=== PATIENT | female | born 1970 | race Caucasian/White ===

== ENCOUNTER 2018-04-05 10:24 | Emergency (ER) | payer OTHER ==
[~2018-04-05] VITALS: Ht 177.8 cm; Wt 158.8 kg
--- OUTSIDE RECORDS SUMMARY | 2018-04-05 10:29 | XMS REPORT | Referral Summary ---
Author Author [facility] Organization [facility] Address Unknown Phone Unavailable Care Team Providers Care Funeral Service Manager Name Role Phone Anthony Grimm PCP Encounter [facility] [id number] Date(s): 01/01/15 - 01/01/[address] [facility] [address] [place], [place] [address] Final: OTHER AND UNSPECIFIED INJURY TO KNEE, LEG, ANKLE, AND FOOT Final: OSTEOARTHROSIS, LOCALIZED, NOT SPECIFIED WHETHER PRIMARY OR SECONDARY, INVOLVING LOWER LEG Final: Other injury of other sites of trunk Discharge Disposition: 01-Home or Self Care Attending Physician: Anthony Grimm MD Admitting Physician: Anthony Grimm MD Vital Signs No data available for this section Problem List No data available for this section Allergies, Adverse Reactions, Alerts No Known Medication Allergies Medications Micardis See Instructions, UNKOWN DOSE @ THIS TIME PER PT, 0 Refill(s) Start Date: 11/11/13 Status: Ordered Results No data available for this section Immunizations No data available for this section Procedures No data available for this section Social History Social History Type Response Smoking Status Former smoker Assessment and Plan No data available for this section
--- OUTSIDE RECORDS SUMMARY | 2018-04-05 10:30 | XMS REPORT | Clinical Summary ---
Author Author CHELSEY Zhang Gregory M [facility], [facility] Address [address] [place] [address] Phone Care Team Providers Care Supervisory Clerk Name Role Phone CHELSEY Zhang Gregory M Unavailable [ ] Conditions or Problems Problem Name Problem Code Onset Date Status Entry Date Provider Comment Standard Description Annotate Degenerative joint disease of right knee 824188840 (SNOMED CT) Active SIA Sy Localized, primary osteoarthritis Other specified postprocedural states 112551320 (SNOMED CT) Active Mikie Neto Postprocedural state finding Muscle weakness 50337973 (SNOMED CT) Active Mikie Neto Muscle weakness Pain in right knee 00251371 (SNOMED CT) Active Ludwin Helena Knee pain Joint effusion, right knee 028673707 (SNOMED CT) Active Ludwin Helena Knee joint effusion Other tear of medial meniscus, current injury, right knee, initial encounter 839384439 (SNOMED CT) Active Ludwin Helena Tear of medial meniscus of knee Degenerative joint disease, knee, right 303741204 (SNOMED CT) Active ISA Sy Osteoarthritis of knee Degenerative joint disease, knees, bilateral 644345184 (SNOMED CT) Active ISA Blanc Osteoarthritis of knee Degenerative joint disease, knee, right, severe 925657812 (SNOMED CT) Active ISA Blanc Osteoarthritis of knee Pain in right knee M25.561 (ICD-10-CM) Active Mikie Duque Pain in right knee Osteoarthritis of knee, unspecified M17.9 (ICD-10-CM) Active Mikie Duque Osteoarthritis of knee, unspecified Medications Medication Instructions Start Date Stop Date Generic Name NDC Provider NORCO 5-325 MG TABS i or ii poq 4-6 hrs prn pain HYDROCODONE- ACETAMINOPHEN [id number] Jona Ho MD TRAMADOL HCL 50 MG TABS 1-2 q 6 hrs prn TRAMADOL HCL [id number] Jona Ho MD MICARDIS TABS TELMISARTAN TABS [id number] Anca Joaquín Medications Administered No information available. Allergies, Adverse Reactions, Alerts Observed no known allergies at Results Date Name Value Unit Range Flag Description Clinical Summary: Patient Portal Indicator PATPORTALPIN I This will be used to establish a PIN number for patients to register in the Patient Portal. 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 MEDS REVIEW Done Documentation of current medications ( procedure) Office Visit: est rck rt knee wanting an injection, [employer] ppo, as 10/11/2017. SMOK ADVICE yes Smoking cessation education (procedure) SMOK STATUS current some day smoker Tobacco smoking status NHIS CARD RSK GRP No cardiac risk group XRAY HX No xray history XRAY TYPE None xray, type Plan of Care Type Date Detail Patient education WEAKNESS Patient education Hydrocodone%2FAcetaminophen%20(Oral)%20(Tablet% 2C%20Liquid%2C%20Capsule) Procedures Code Procedure Name Date Entry Date CPT-56008 Arthrocentesis, aspiration and/or injection; major joint or bursa ( eg, [facility] CPT-J1030 Injection, Depo Medrol- methylprednisolone acetate, 40 mg CPT-26514 Arthrocentesis, aspiration and/or injection; major joint or bursa ( eg, [facility] CPT-J1030 Injection, Depo Medrol- methylprednisolone acetate, 40 mg CPT-90139 Arthrocentesis, aspiration and/or injection; major joint or bursa ( eg, [facility] CPT-J1030 Injection, Depo Medrol- methylprednisolone acetate, 40 mg CPT-45183 Arthrocentesis, aspiration and/or injection; major joint or bursa ( eg, [facility] CPT-J1030 Injection, Depo Medrol- methylprednisolone acetate, 40 mg CPT-G8730 Pain assessment documented as positive and f/u plan is documented CPT-G8730 Pain assessment documented as positive and f/u plan is documented CPT-G8730 Pain assessment documented as positive and f/u plan is documented REF SEND LETTER TO REF CPT-58393 Aspiration and/or Injection; major joint or bursa (Shldr., Hip or Knee) CPT-J7323 Euflexxa CPT-93868 Aspiration and/or Injection; major joint or bursa (Shldr., Hip or Knee) CPT-J7323 Euflexxa CPT-02995 Arthrocentesis, aspiration and/or injection; [facility] ( [facility] C[facility]-J[facility] Injection, Depo Medrol- methylprednisolone acetate, 40 mg CPT-53637 Aspiration and/or Injection; major joint or bursa (Shldr., Hip or Knee) CPT-J7323 Euflexxa CPT-44428 Arthrocentesis, aspiration and/or injection; major joint or bursa ( eg, [facility] CPT-J1030 Injection, Depo Medrol- methylprednisolone acetate, 40 mg REF MD SEND LETTER TO REF MD REF MD SEND LETTER TO REF Vital Signs Date Name Value Unit Description BMI (Body Mass Index) 50.21 kg/m2 Body Mass Index [Ratio] Height 70 [in_us] height E&M Weight Measured 350 [lb_av] weight E&M BP Diastolic 78 mm[Hg] blood pressure, diastolic BP Systolic 140 mm[Hg] blood pressure, systolic Heart Rate 71 /min pulse rate E&M Encounters Code Encounter Date Provider Facility [facility]37944 41001- Est Level II Jimmy Zhang PA-C [facility] at [facility]52316 04871- Est Level III Jimmy Zhang PA-C [facility] at [facility]86459 85156- Est Level III Jimmy Zhang PA-C [facility] at [facility]57727 10338 - Postoperative follow-up visit Jimmy Zhang PA-C [facility] at [facility]18417 92965 - Postoperative follow-up visit Jimmy Zhang PA-C [facility] at [facility]36574 03251- Est Level III Jona Ho MD [facility] at [facility]31174 27931- [facility] Level III Jimmy Zhang PA-C [facility] at [place] CPT-90310 42723- [facility] Level III Jona Ho MD [facility] at [place] Social History Concept Description Observation Name Observation Value Units Start Date Alcohol use ETOH USE Yes Current some day smoker SMOK STATUS current some day smoker Tobacco use and exposure SMOK ADVICE yes Alcohol use ETOH USE Yes Current some day smoker SMOK STATUS current some day smoker Tobacco use and exposure SMOK ADVICE yes Alcohol use ETOH USE Yes Current some day smoker SMOK STATUS current some day smoker Tobacco use and exposure SMOK ADVICE yes Alcohol use ETOH USE Yes Current some day smoker SMOK STATUS current some day smoker Alcohol use ETOH USE Yes Current some day smoker SMOK STATUS current some day smoker Alcohol use ETOH USE Yes Current some day smoker SMOK STATUS current some day smoker
--- OUTSIDE RECORDS SUMMARY | 2018-04-05 10:30 | XMS REPORT | Clinical Summary ---
Author Author CHELSEY Zhang Gregory M [facility], [facility] Address [address] [place] [address] Phone Care Team Providers Care Local Company Flatbed Truck Driver Name Role Phone CHELSEY Zhang Gregory M Unavailable [ ] Conditions or Problems Problem Name Problem Code Onset Date Status Entry Date Provider Comment Standard Description Annotate Degenerative joint disease of right knee 098781998 (SNOMED CT) Active ISA Sy Localized, primary osteoarthritis Other specified postprocedural states 461816350 (SNOMED CT) Active Mikie Neto Postprocedural state finding Muscle weakness 46505542 (SNOMED CT) Active Mikie Neto Muscle weakness Pain in right knee 31818302 (SNOMED CT) Active Ludwin Helena Knee pain Joint effusion, right knee 860284923 (SNOMED CT) Active Ludwin Helena Knee joint effusion Other tear of medial meniscus, current injury, right knee, initial encounter 006861800 (SNOMED CT) Active Ludwin Helena Tear of medial meniscus of knee Degenerative joint disease, knee, right 263221567 (SNOMED CT) Active ISA Sy Osteoarthritis of knee Degenerative joint disease, knees, bilateral 131521506 (SNOMED CT) Active ISA Blanc Osteoarthritis of knee Degenerative joint disease, knee, right, severe 515892164 (SNOMED CT) Active ISA Blanc Osteoarthritis of knee Pain in right knee M25.561 (ICD-10-CM) Active Mikie Duque Pain in right knee Osteoarthritis of knee, unspecified M17.9 (ICD-10-CM) Active Mikie Duque Osteoarthritis of knee, unspecified Medications Medication Instructions Start Date Stop Date Generic Name NDC Provider NORCO 5-325 MG TABS i or ii poq 4-6 hrs prn pain HYDROCODONE- ACETAMINOPHEN [id number] Jona Ho MD TRAMADOL HCL 50 MG TABS 1-2 q 6 hrs prn TRAMADOL HCL [id number] Joan Ho MD MICARDIS TABS TELMISARTAN TABS [id number] Anca Joaquín Medications Administered No information available. Allergies, Adverse Reactions, Alerts Observed no known allergies at Results Date Name Value Unit Range Flag Description Clinical Summary: Patient Portal Indicator PATPORTALPIN I This will be used to establish a PIN number for patients to register in the Patient Portal. 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 yes Dietary management education, guidance , and [...] Procedures Code Procedure Name Date Entry Date CPT-47739 Arthrocentesis, aspiration and/or injection; major joint or bursa ( eg, [facility] CPT-J1030 Injection, Depo Medrol- methylprednisolone acetate, 40 mg CPT-20906 Arthrocentesis, aspiration and/or injection; major joint or bursa ( eg, [facility] CPT-J1030 Injection, Depo Medrol- methylprednisolone acetate, 40 mg CPT-93681 Arthrocentesis, aspiration and/or injection; major joint or bursa ( eg, [facility] CPT-J1030 Injection, Depo Medrol- methylprednisolone acetate, 40 mg CPT-81390 Arthrocentesis, aspiration and/or injection; major joint or bursa ( eg, [facility] CPT-J1030 Injection, Depo Medrol- methylprednisolone acetate, 40 mg CPT-G8730 Pain assessment documented as positive and f/u plan is documented CPT-G8730 Pain assessment documented as positive and f/u plan is documented CPT-G8730 Pain assessment documented as positive and f/u plan is documented REF SEND LETTER TO REF CPT-34944 Aspiration and/or Injection; major joint or bursa (Shldr., Hip or Knee) CPT-J7323 Euflexxa CPT-67046 Aspiration and/or Injection; major joint or bursa (Shldr., Hip or Knee) CPT-J7323 Euflexxa CPT-57516 Arthrocentesis, aspiration and/or injection; [facility] ( [facility] CPT-J[facility]30 Injection, Depo Medrol- methylprednisolone acetate, 40 mg CPT-44756 Aspiration and/or Injection; major joint or bursa (Shldr., Hip or Knee) CPT-J7323 Euflexxa CPT-23750 Arthrocentesis, aspiration and/or injection; major joint or [...] E&M Encounters Code Encounter Date Provider Facility [facility]36364 69949- Est Level II Jimmy Zhang PA-C [facility] at [facility]65149 31129- Est Level III Jimmy Zhang PA-C [facility] at [facility]37935 63992- Est Level III Jimmy Zhang PA-C [facility] at [facility]00320 00293 - Postoperative follow-up visit Jimmy Zhang PA-C [facility] at [facility]79061 49506 - Postoperative follow-up visit Jimmy Zhang PA-C [facility] at [facility]13173 16250- Est Level III Jona Ho MD [facility] at [facility]98727 61775- [facility] Level III Jimmy Zhang PA-C [facility] at [place] CPT-69988 55757- [facility] Level III Jona Ho MD [facility] at [place] Social History Concept Description Observation Name Observation [...]
--- OUTSIDE RECORDS SUMMARY | 2018-04-05 10:31 | XMS REPORT ---
Author Author Scott Dent Organization [facility] Address [address] [place] [address] Care Team Providers Care Circuit Court Judge Name Role Phone Scott Dent Unavailable PROBLEMS Type Condition ICD9-CM Code ALV82-MQ Code Onset Dates Condition Status SNOMED Code Problem Mild episode of recurrent major depressive disorder F33.0 Active 137207194 Problem Other chronic pain G89.29 Active 11458073 Problem Benign essential hypertension I10 Active 4035712 Problem Morbid (severe) obesity due to excess calories E66.01 Active 492553108 Problem Mixed hyperlipidemia E78.2 Active 042953756 Problem Seasonal allergic rhinitis due to other allergic trigger J30.89 Active 148856610 Problem Other chronic pain G89.29 Active 13634905 Problem Vitamin D deficiency E55.9 Active 77836281 Problem Cigarette nicotine dependence without complication F17.210 Active 98539045 Problem Primary osteoarthritis of right knee M17.11 Active 186271202 Problem Essential hypertension I10 Active 35246199 Problem Major depressive disorder with single episode, in full remission F32.5 Active 088935151 Problem Mild intermittent asthma without complication J45.20 Active 816432335 Problem Morbid obesity with BMI of 50.0-59.9, adult Z68.43 Active 450799544 ALLERGIES No Information ENCOUNTERS Encounter Location Date Diagnosis [facility] [address] [place] [address] [id number] Feb, [facility] [address] [place] [address] [id number] Dec, [facility] [address] [place] [address] [id number] Dec, [facility] [address] [place] [address] [id number] Dec, Encounter for administrative examinations Z02.9 [facility] [address] [place] [address] [id number] Dec, Encounter for general adult medical examination without abnormal findings Z00.00 ; Screening for blood or protein in urine Z13.89 ; Seasonal allergic rhinitis due to other allergic trigger J30.89 ; Screening, heart disease, ischemic Z13.6 ; Benign essential hypertension I10 ; Mixed hyperlipidemia E78.2 ; Vitamin D deficiency E55.9 ; Weight gain R63.5 ; Body mass index (BMI) of 50- 59.9 in adult Z68.43 ; Morbid (severe) obesity due to excess calories E66.01 ; Cigarette nicotine dependence without complication F17.210 ; Tobacco abuse Z72.0 and Tobacco abuse counseling Z71.[address] [facility] [address] [id number] September, Pain in right knee M25.561 ; Other chronic pain G89.29 and Benign essential hypertension I10 [facility] [address] [id number] Jan, [facility] [address] [id number] Dec, Pain in right knee M25.561 ; Chronic seasonal allergic rhinitis due to other allergen J30.2 ; Screening, heart disease, ischemic Z13.6 ; Benign essential hypertension I10 ; Mild intermittent asthma without complication J45.20 and Mild episode of recurrent major depressive disorder F33.0 [facility] [address] [id number] Nov, [facility] [address] [id number] Nov, Acute non-recurrent sinusitis, unspecified location J01.90 and Unknown skin lesion L98.[address] [facility] [address] [id number] Aug, [facility] [address] [id number] Jul, Paronychia of great toe, left L03.032 [facility] [address] [id number] May, [facility] [address] [id number] Dec, Seasonal allergic rhinitis, unspecified allergic rhinitis trigger J30.2 and Eustachian tube dysfunction, bilateral H69.83 [facility] [address] [id number] Nov, Acute meniscal tear of right knee, subsequent encounter S83.206D ; Acute non-recurrent maxillary sinusitis J01.00 and Eustachian tube salpingitis, left H68.002 [facility] [address] [id number] September, Arthritis of knee M19.90 and High risk medication use Z79.8[address] [facility] [address] [id number] Aug, [facility] [address] [id number] Jul, Essential hypertension I10 and Mild intermittent asthma without complication J45.20 [facility] [address] [id number] Jul, Mild intermittent asthma without complication J45.20 ; Essential hypertension I10 ; Major depressive disorder with single episode, in full remission F32.5 ; Primary osteoarthritis of right knee M17.11 ; Allergic rhinitis, unspecified allergic rhinitis type J30.9 and Morbid obesity with BMI of 50.0-59.9, adult Z68.43 IMMUNIZATIONS No Known Immunizations SOCIAL HISTORY Never Assessed REASON FOR VISIT PA PLAN OF CARE VITAL SIGNS MEDICATIONS Medication Instructions Dosage Frequency Start Date End Date Duration Status Saxenda 18 mg/3ml (6mg/ml) injection Once a day 3.4mg 24h Dec, 30 days Active RESULTS No Results PROCEDURES No Known procedures INSTRUCTIONS MEDICATIONS ADMINISTERED No Known Medications MEDICAL (GENERAL) HISTORY Type Description Date Medical History hypertension Medical History arthritis Surgical History tonsillectomy Surgical History prakash anal ulcer Surgical History right knee surgery Dr. Ho 12/02/2015
--- OUTSIDE RECORDS SUMMARY | 2018-04-05 10:31 | XMS REPORT ---
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.0 Active 759406463 Problem Other chronic pain G89.29 Active 41205086 Problem Benign essential hypertension I10 Active 6220777 Problem Morbid (severe) obesity due to excess calories E66.01 Active 556419457 Problem Mixed hyperlipidemia E78.2 Active 407349097 Problem Seasonal allergic rhinitis due to other allergic trigger J30.89 Active 775582962 Problem Other chronic pain G89.29 Active 20443406 Problem Vitamin D deficiency E55.9 Active 30815770 Problem Cigarette nicotine dependence without complication F17.210 Active 73839229 Problem Primary osteoarthritis of right knee M17.11 Active 294744577 Problem Essential hypertension I10 Active 96897409 Problem Major depressive disorder with single episode, in full remission F32.5 Active 054419016 Problem Mild intermittent asthma without complication J45.20 Active 080539325 Problem Morbid obesity with BMI of 50.0-59.9, adult Z68.43 Active 696112916 ALLERGIES No Known Allergies ENCOUNTERS Encounter Location Date Diagnosis [facility] [address] [place] [address] [id number] Dec, [facility] [address] [place] [address] [id number] Dec, [facility] [address] [place] [address] [id number] Dec, Encounter for general adult medical examination [...] abuse Z72.0 and Tobacco abuse counseling Z71.6 [facility] [address] [id number] September, Pain in right knee M25.561 ; Other chronic pain G89.29 and Benign essential hypertension I10 [facility] [address] [id number] Jan, [facility] [address] [id number] Dec, Pain in right knee M25.561 ; Chronic seasonal allergic rhinitis due to other allergen J30.2 ; Screening, heart disease, ischemic Z13.6 ; Benign essential hypertension I10 ; Mild intermittent asthma without complication J45.20 and Mild episode of recurrent major depressive disorder F33.0 [facility] [address] [id number] Nov, [facility] [address] [id number] Nov, Acute non-recurrent sinusitis, unspecified location J01.90 and Unknown skin lesion L98.9 [facility] [address] [id number] Aug, [facility] [address] [id number] Jul, Paronychia of great toe, left L03.032 [facility] [address] [id number] May, [facility] [address] [id number] Dec, Seasonal allergic rhinitis, unspecified allergic rhinitis trigger J30.2 and Eustachian tube dysfunction, bilateral H69.83 [facility] [address] [id number] Nov, Acute meniscal tear of right knee, subsequent encounter S83.206D ; Acute non-recurrent maxillary sinusitis J01.00 and Eustachian tube salpingitis, left H68.002 [facility] [address] [id number] September, Arthritis of knee M19.90 and High risk medication use Z79.899 [facility] [address] [place] [address] [id number] Aug, [facility] [address] [place] [address] [id number] Jul, Essential hypertension I10 and Mild intermittent asthma without complication J45.[address] [facility] [address] [place] [address] [id number] Jul, Mild intermittent asthma without complication J45.20 ; Essential hypertension I10 ; Major depressive disorder with single episode, in full remission F32.5 ; Primary osteoarthritis of right knee M17.11 ; Allergic rhinitis, unspecified allergic rhinitis type J30.9 and Morbid obesity with BMI of 50.0-59.9, adult Z68.43 IMMUNIZATIONS No Known Immunizations SOCIAL HISTORY Never Assessed REASON FOR VISIT phy/LOUISErouillard PLAN OF CARE Activity Details Follow Up 1 Year, prn Reason: VITAL SIGNS Temperature 98.3 degrees Fahrenheit 2017-12-14 Height 69.0 in 2017-12-14 Weight 369.2 lbs 2017-12-14 Oximetry 96%ra % 2017-12-14 BMI 54.52 kg/m2 2017-12-14 Blood pressure systolic 148 mm Hg 2017-12-14 Blood pressure diastolic 88 rechck 128 mm Hg 2017-12-14 MEDICATIONS Medication Instructions Dosage Frequency Start Date End Date Duration Status Iron 325 (65 Fe) MG Orally prn only 1 tablet 30 day(s) Active Potassimin 75 MG Orally Once a day 1 tablet 24h 30 day(s) Active Voltaren 1 % Externally QID prn apply to Rt knee Dec, 30 days Active ProAir HFA 108 (90 Base) MCG/ACT Inhalation every 4 hrs 2 puffs as needed 4h 90 Active Flonase 50 MCG/ACT Nasally Once a day 2 sprays in each nostril 24h Jul, 90 days Active Meloxicam 7.5 MG Orally Once a day 1 tablet 24h May, 30 Active Escitalopram Oxalate 20 MG Orally Once a day 1 tablet 24h 90 Active Medrol 4 mg Orally daily as directed 24h September, 6 days Active Fexofenadine HCl 180 MG Orally Once a day 1 tablet as needed 24h Dec, Nov, 90 days Active Telmisartan-HCTZ 80-25 MG Orally Once a day 1 tablet 24h 90 Active Furosemide 40 MG Orally Once a day as needed 1 tablet 90 Active RESULTS Name Result Date Reference Range Urinalysis, Complete 2017-12-14 Microscopic Examination Urine-Color yellow Appearance clear Specific [place] 1.015 pH 7.5 Glucose neg Protein neg Occult Blood neg Bilirubin neg Urobilinogen,Semi-Qn 0.2 Nitrite, Urine neg Ketones neg WBC Esterase neg Urinalysis Gross Exam Microscopic Examination *TSH 2017-12-14 TSH 1.13 0.34-4.82 *CBC With Differential/Platelet 2017-12-14 WBC 6.2 5.0-10.0 RBC 4.92 4.00-6.00 Hemoglobin 13.0 12.0-16.0 Hematocrit 41.4 37.0-47.0 MCV 84.1 80.0-100.0 MCH 26.4 27.0-33.0 MCHC 31.4 32.0-37.0 RDW 14.2 11.0-15.6 Platelets 273 150-400 Neutrophils 55.5 50-75 Lymphs 32.4 20-30 Monocytes 6.9 4-6 Eos 4.2 2-4 Basos 0.8 0-1 Neutrophils (Absolute) 3.4 2.0-9.0 Lymphs (Absolute) 2.0 1.0-4.0 Monocytes(Absolute) 0.4 0.1-1.0 Eos (Absolute) 0.3 0.1-0.5 Baso (Absolute) 0.1 0.0-0.2 Immature Granulocytes 0.2 0.0-0.6 Immature Grans (Abs) 0.01 0.00-0.09 NRBC 0.0 0.0-0.0 *Comp. Metabolic Panel (14) 2017-12-14 Glucose 88 70-99 BUN 15 7-20 Creatinine 0.6 0.6-1.0 eGFR If NonAfricn Am 109 > 59 eGFR If Africn Am 127 > 59 BUN/Creatinine Ratio 25 9-20 Sodium 140 135-148 Potassium 4.5 3.5-5.3 Chloride 107 98-110 Carbon Dioxide, Total 28 21-32 Calcium 8.8 8.5-10.1 Protein, Total 6.9 6.4-8.2 Albumin 3.7 3.4-5.0 Bilirubin, Total 0.4 0.0-1.0 Alkaline Phosphatase 72 45-117 AST (SGOT) 13 10-37 ALT (SGPT) 26 < 66 *Vitamin D, 25-Hydroxy 2017-12-14 Vitamin D, 25-Hydroxy 29.8 30.0-100.0 *Lipid Panel w/ Chol/HDL Ratio 2017-12-14 Cholesterol, Total 222 < 200 Triglycerides 56 < 150 HDL Cholesterol 57 > 39 VLDL Cholesterol Howie 11 < 30 LDL Cholesterol Calc 154 < 100 T. Chol/HDL Ratio 3.9 < 5.0 PROCEDURES Procedure Date Ordered Result Body Site URINALYSIS Dec 14, 2017 VENIPUNCT, ROUTINE* Dec 14, 2017 ASSAY OF VITAMIN D Dec 14, 2017 COMPREHEN METABOLIC PANEL Dec 14, 2017 COMPLETE CBC W/AUTO DIFF WBC Dec 14, 2017 ASSAY THYROID STIM HORMONE Dec 14, 2017 LIPID PANEL Dec 14, 2017 INSTRUCTIONS MEDICATIONS ADMINISTERED No Known Medications MEDICAL (GENERAL) HISTORY Type Description Date Medical History hypertension Medical History arthritis Surgical History tonsillectomy Surgical History prakash anal ulcer Surgical History right knee surgery Dr. Ho 12/02/2015
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
--- OUTSIDE RECORDS SUMMARY | 2018-04-05 10:32 | XMS REPORT ---
Author Author Scott Dent Organization [facility] Address [address] [place] [address] Care Team Providers Care Cone Baker Machine Name Role Phone Scott Dent Unavailable PROBLEMS Type Condition ICD9-CM Code [id number] Code Onset Dates Condition Status SNOMED Code Problem Mild intermittent asthma without complication J45.20 Active 587296191 Problem Essential hypertension I10 Active 26523587 Problem Morbid obesity with BMI of 50.0-59.9, adult Z68.43 Active 771616033 Assessment Paronychia of great toe, left L03.032 Jul, Active 334525253 Problem Major depressive disorder with single episode, in full remission F32.5 Active 325745700 Problem Primary osteoarthritis of right knee M17.11 Active 666315952 ALLERGIES Substance Reaction Event Type Date Status N.K.D.A. Unknown Non Drug Allergy Jul, Unknown SOCIAL HISTORY No smoking Hx information available PLAN OF CARE Activity Details Future/Pending Procedure I & D Skin abscess 2 Weeks,Reason: VITAL SIGNS Temperature 98.5 degrees Fahrenheit 2016-07-15 Height 69.0 in 2016-07-15 Weight 366.8 lbs 2016-07-15 Oximetry 99% RA/rest % 2016-07-15 BMI 54.16 kg/m2 2016-07-15 Blood pressure systolic 120 mm Hg 2016-07-15 Blood pressure diastolic 76 mm Hg 2016-07-15 MEDICATIONS Medication Instructions Dosage Frequency Start Date End Date Duration Status Escitalopram Oxalate 20 MG Orally Once a day 1 tablet 24h 30 Active ProAir HFA 108 (90 Base) MCG/ACT Inhalation every 4 hrs 2 puffs as needed 4h 90 days Active Telmisartan-HCTZ 80-25 MG Orally Once a day 1 tablet 24h 90 days Active Meloxicam 7.5 MG Orally Once a day 1 tablet 24h May, 30 day(s) Active Iron 325 (65 Fe) MG Orally prn only 1 tablet 30 day(s) Active Potassimin 75 MG Orally Once a day 1 tablet 24h 30 day(s) Active Flonase 50 MCG/ACT Nasally Once a day 2 sprays in each nostril 24h Jul, Active Furosemide 40 MG Orally Once a day as needed 1 tablet 90 Active PredniSONE 20 mg Orally Once a day 2 tablets daily x 5 days then 1 tablet daily x 5 days 24h Dec, 10 days Active Telmisartan-HCTZ 0 Orally Once a day 1 tablet 24h 90 Active Bactrim DS 800-160 MG Orally Twice a day 1 tablet 12h Jul, 10 day(s) Active RESULTS No Results PROCEDURES Procedure Date Ordered Related Diagnosis Body Site DRAINAGE OF SKIN ABSCESS July 15, 2016 Office Visit, Est Pt., Level 3 July 15, 2016 IMMUNIZATIONS No Known Immunizations
--- OUTSIDE RECORDS SUMMARY | 2018-04-05 10:32 | XMS REPORT ---
Author Author Scott Dent Organization [facility] Address [address] [place] [address] Care Team Providers Care Welding Machine Assembler Name Role Phone Scott Dent Unavailable PROBLEMS Type Condition ICD9-CM Code [id number] Code Onset Dates Condition Status SNOMED Code Problem Mild intermittent asthma without complication J45.20 Active 771344372 Problem Essential hypertension I10 Active 37884389 Problem Morbid obesity with BMI of 50.0-59.9, adult Z68.43 Active 935660843 Problem Major depressive disorder with single episode, in full remission F32.5 Active 395296599 Problem Primary osteoarthritis of right knee M17.11 Active 106893571 ALLERGIES Unknown Allergies SOCIAL HISTORY No smoking Hx information available PLAN OF CARE VITAL SIGNS MEDICATIONS Unknown Medications RESULTS No Results PROCEDURES No Known procedures IMMUNIZATIONS No Known Immunizations
--- OUTSIDE RECORDS SUMMARY | 2018-04-05 10:32 | XMS REPORT ---
Author Author Scott Dent Organization [facility] Address [address] [place] [address] Care Team Providers Care Lactation Coordinator Name Role Phone Scott Dent Unavailable PROBLEMS Type Condition ICD9-CM Code [id number] Code Onset Dates Condition Status SNOMED Code Problem Major depressive disorder with single episode, in full remission F32.5 Active 964838246 Problem Primary osteoarthritis of right knee M17.11 Active 096305607 Problem Mild intermittent asthma without complication J45.20 Active 352250863 Problem Other chronic pain G89.29 Active 72971248 Problem Other chronic pain G89.29 Active 69134614 Problem Morbid obesity with BMI of 50.0-59.9, adult Z68.43 Active 606015168 Problem Essential hypertension I10 Active 00271830 Problem Mild episode of recurrent major depressive disorder F33.0 Active 326466509 Problem Benign essential hypertension I10 Active 9007928 ALLERGIES No Known Allergies ENCOUNTERS Encounter Location Date Diagnosis [facility] [address] [place] [address] [id number] September, Pain in right knee M25.561 ; Other chronic pain G89.29 and Benign essential hypertension I10 [facility] [address] [place] [address] [id number] Jan, [facility] [address] [place] [address] [id number] Dec, Pain in right knee M25.561 ; Chronic seasonal allergic rhinitis due to other allergen J30.2 ; Screening, heart disease, ischemic Z13.6 ; Benign essential hypertension I10 ; Mild intermittent asthma without complication J45.20 and Mild episode of recurrent major depressive disorder F33.0 [facility] [address] [place] [address] [id number] Nov, [facility] [address] [place] [address] [id number] Nov, Acute non-recurrent sinusitis, unspecified location J01.90 and Unknown skin lesion L98.9 [facility] [address] [id number] Aug, [facility] [address] [id number] Jul, Paronychia of great toe, left L03.[address] [facility] [address] [id number] May, [facility] [address] [id number] Dec, Seasonal allergic rhinitis, unspecified allergic rhinitis trigger J30.2 and Eustachian tube dysfunction, bilateral H69.83 [facility] [address] [id number] Nov, Acute meniscal tear of right knee, subsequent encounter S83.206D ; Acute non-recurrent maxillary sinusitis J01.00 and Eustachian tube salpingitis, left H68.002 [facility] [address] [id number] September, Arthritis of knee M19.90 and High risk medication use Z79.899 [facility] [address] [id number] Aug, [facility] [address] [id number] Jul, Essential hypertension I10 and Mild intermittent asthma without complication J45.20 [facility] [address] [id number] Jul, Mild intermittent asthma without complication J45.20 ; Essential hypertension I10 ; Major depressive disorder with single episode, in full remission F32.5 ; Primary osteoarthritis of right knee M17.11 ; Allergic rhinitis, unspecified allergic rhinitis type J30.9 and Morbid obesity with BMI of 50.0-59.9, adult Z68.43 IMMUNIZATIONS No Known Immunizations SOCIAL HISTORY Never Assessed REASON FOR VISIT BP check up/lipid/MPerez PLAN OF CARE Activity Details Follow Up 4 Weeks Reason:annual px and lab VITAL SIGNS Temperature 97.9 degrees Fahrenheit 2017-10-12 Height 69.0 in 2017-10-12 Weight 367.2 lbs 2017-10-12 Oximetry 98%RA % 2017-10-12 BMI 54.22 kg/m2 2017-10-12 Blood pressure systolic 138 mm Hg 2017-10-12 Blood pressure diastolic 87 mm Hg 2017-10-12 MEDICATIONS Medication Instructions Dosage Frequency Start Date End Date Duration Status Meloxicam 7.5 MG Orally Once a day 1 tablet 24h May, 30 Active Voltaren 1 % Externally QID prn apply to Rt knee Dec, 30 days Active Flonase 50 MCG/ACT Nasally Once a day 2 sprays in each nostril 24h Jul, Active Telmisartan-HCTZ 80-25 MG Orally Once a day 1 tablet 24h Active Potassimin 75 MG Orally Once a day 1 tablet 24h 30 day(s) Active Medrol 4 mg Orally daily as directed 24h September, 6 days Active ProAir HFA 108 (90 Base) MCG/ACT Inhalation every 4 hrs 2 puffs as needed 4h 90 Active Iron 325 (65 Fe) MG Orally prn only 1 tablet 30 day(s) Active Furosemide 40 MG Orally Once a day as needed 1 tablet 90 Active Escitalopram Oxalate 20 MG Orally Once a day 1 tablet 24h 90 Active RESULTS No Results PROCEDURES No Known procedures INSTRUCTIONS MEDICATIONS ADMINISTERED No Known Medications MEDICAL (GENERAL) HISTORY Type Description Date Medical History hypertension Medical History arthritis Surgical History tonsillectomy Surgical History prakash anal ulcer Surgical History right knee surgery Dr. Ho 12/02/2015
--- OUTSIDE RECORDS SUMMARY | 2018-04-05 10:32 | XMS REPORT ---
Author Author Scott Dent Organization [facility] Address [address] [place] [address] Care Team Providers Care Broadcast Chief Engineer Name Role Phone Scott Dent Unavailable PROBLEMS Type Condition ICD9-CM Code [id number] Code Onset Dates Condition Status SNOMED Code Problem Primary osteoarthritis of right knee M17.11 Active 734236587 Problem Morbid obesity with BMI of 50.0-59.9, adult Z68.43 Active 657508877 Problem Other chronic pain G89.29 Active 63131598 Problem Benign essential hypertension I10 Active 5407120 Problem Essential hypertension I10 Active 66651346 Problem Major depressive disorder with single episode, in full remission F32.5 Active 928728039 Problem Mild episode of recurrent major depressive disorder F33.0 Active 125649528 Problem Mild intermittent asthma without complication J45.20 Active 778738795 ALLERGIES Unknown Allergies SOCIAL HISTORY No smoking Hx information available PLAN OF CARE VITAL SIGNS MEDICATIONS Medication Instructions Dosage Frequency Start Date End Date Duration Status Iron 325 (65 Fe) MG Orally prn only 1 tablet 30 day(s) Active Potassimin 75 MG Orally Once a day 1 tablet 24h 30 day(s) Active Furosemide 40 MG Orally Once a day as needed 1 tablet 90 Active ProAir HFA 108 (90 Base) MCG/ACT Inhalation every 4 hrs 2 puffs as needed 4h 90 Active Flonase 50 MCG/ACT Nasally Once a day 2 sprays in each nostril 24h Jul, Active Medrol 4 mg Orally daily as directed 24h Dec, 6 days Active Telmisartan-HCTZ 80-25 MG Orally Once a day 1 tablet 24h 90 days Active Meloxicam 7.5 MG Orally Once a day 1 tablet 24h May, 30 day(s) Active Voltaren 1 % Externally QID prn apply to Rt knee Dec, 30 days Active Escitalopram Oxalate 20 MG Orally Once a day 1 tablet 24h 90 days Active RESULTS No Results PROCEDURES No Known procedures IMMUNIZATIONS No Known Immunizations
--- OUTSIDE RECORDS SUMMARY | 2018-04-05 10:32 | XMS REPORT ---
Author Author Scott Dent Organization [facility] Address [address] [place] [address] Care Team Providers Care High School Foreign Language Tutor Name Role Phone Scott Dent Unavailable PROBLEMS Type Condition ICD9-CM Code TUX35-OQ Code Onset Dates Condition Status SNOMED Code Problem Mild intermittent asthma without complication J45.20 Active 599294238 Problem Essential hypertension I10 Active 90709719 Problem Morbid obesity with BMI of 50.0-59.9, adult Z68.43 Active 466448415 Problem Major depressive disorder with single episode, in full remission F32.5 Active 182891549 Problem Primary osteoarthritis of right knee M17.11 Active 317773518 ALLERGIES Substance Reaction Event Type Date Status N.K.D.A. Unknown Non Drug Allergy Nov, Unknown SOCIAL HISTORY Qualifiers Date PLAN OF CARE Activity Details Follow Up prn Reason:null VITAL SIGNS Temperature 97.9 degrees Fahrenheit 2016-12-07 Height 69.0 in 2016-12-07 Weight 369.4 lbs 2016-12-07 Oximetry 99%ra % 2016-12-07 BMI 54.54 kg/m2 2016-12-07 Blood pressure systolic 120 mm Hg 2016-12-07 Blood pressure diastolic 78 mm Hg 2016-12-07 MEDICATIONS Medication Instructions Dosage Frequency Start Date End Date Duration Status Potassimin 75 MG Orally Once a day 1 tablet 24h 30 day(s) Active Iron 325 (65 Fe) MG Orally prn only 1 tablet 30 day(s) Active Zithromax Z-Jose Daniel 250 MG Orally Once a day 2 tablets on the first day, then 1 tablet daily for 4 days 24h Nov, 5 day(s) Active Meloxicam 7.5 MG Orally Once a day 1 tablet 24h May, 30 day(s) Active ProAir HFA 108 (90 Base) MCG/ACT Inhalation every 4 hrs 2 puffs as needed 4h 90 Active Furosemide 40 MG Orally Once a day as needed 1 tablet 90 Active Escitalopram Oxalate 20 MG Orally Once a day 1 tablet 24h 90 days Active Telmisartan-HCTZ 80-25 MG Orally Once a day 1 tablet 24h 90 days Active Flonase 50 MCG/ACT Nasally Once a day 2 sprays in each nostril 24h Jul, Active RESULTS No Results PROCEDURES Procedure Date Ordered Related Diagnosis Body Site Office Visit, Est Pt., Level 3 December 07, 2016 IMMUNIZATIONS No Known Immunizations
--- OUTSIDE RECORDS SUMMARY | 2018-04-05 10:32 | XMS REPORT ---
Author Author Scott Dent Organization [facility] Address [address] [place] [address] Care Team Providers Care Flight Attendant/Inflight Supervisor Name Role Phone Scott Dent Unavailable PROBLEMS Type Condition ICD9-CM Code [id number] Code Onset Dates Condition Status SNOMED Code Problem Morbid obesity with BMI of 50.0-59.9, adult Z68.43 Active 037453023 Problem Benign essential hypertension I10 Active 9971407 Problem Mild episode of recurrent major depressive disorder F33.0 Active 580444102 Problem Major depressive disorder with single episode, in full remission F32.5 Active 780823814 Problem Mild intermittent asthma without complication J45.20 Active 838775596 Problem Primary osteoarthritis of right knee M17.11 Active 333503045 Problem Essential hypertension I10 Active 97073458 Problem Morbid (severe) obesity due to excess calories E66.01 Active 659149716 Problem Mixed hyperlipidemia E78.2 Active 049257785 Problem Other chronic pain G89.29 Active 77397464 Problem Other chronic pain G89.29 Active 25817107 Problem Vitamin D deficiency E55.9 Active 86466562 Problem Seasonal allergic rhinitis due to other allergic trigger J30.89 Active 465615991 ALLERGIES No Information ENCOUNTERS Encounter Location Date Diagnosis [facility] [address] [place] [id number] Dec, [facility] [address] [place] [id number] Dec, [facility] [address] [place] [id number] Dec, Encounter for general adult medical examination [...] (BMI) of 50- 59.9 in adult Z68.43 and Morbid (severe) obesity due to excess calories E66.[address] [facility] [address] [id number] September, Pain in right knee M25.561 ; Other chronic pain G89.29 and Benign essential hypertension I10 [email or web address] [address] [id number] Jan, [facility] [address] [id number] Dec, Pain in right knee M25.561 ; Chronic seasonal allergic rhinitis due to other allergen J30.2 ; Screening, heart disease, ischemic Z13.6 ; Benign essential hypertension I10 ; Mild intermittent asthma without complication J45.20 and Mild episode of recurrent major depressive disorder F33.[address] [facility] [address] [id number] Nov, [facility] [address] [id number] Nov, Acute non-recurrent sinusitis, unspecified location J01.90 and Unknown skin lesion L98.[address] [facility] [address] [id number] Aug, [facility] [address] [id number] Jul, Paronychia of great toe, left L03.[address] [facility] [address] [id number] May, [facility] [address] [id number] Dec, Seasonal allergic rhinitis, unspecified allergic rhinitis trigger J30.2 and Eustachian tube dysfunction, bilateral H69.[address] [facility] [address] [id number] Nov, Acute meniscal tear of right knee, subsequent encounter S83.206D ; Acute non-recurrent maxillary sinusitis J01.00 and Eustachian tube salpingitis, left H68.002 [facility] [address] [id number] September, Arthritis of knee M19.90 and High risk medication use Z79.[address] [facility] [address] [place] [id number] Aug, [facility] [address] [place], [place] [id number] Jul, Essential hypertension I10 and Mild intermittent asthma without complication J45.20 [facility] [address] [place], [place] [id number] Jul, Mild intermittent asthma without complication J45.20 ; Essential hypertension I10 ; Major depressive disorder with single episode, in full remission F32.5 ; Primary osteoarthritis of right knee M17.11 ; Allergic rhinitis, unspecified allergic rhinitis type J30.9 and Morbid obesity with BMI of 50.0-59.9, adult Z68.43 IMMUNIZATIONS No Known Immunizations SOCIAL HISTORY Never Assessed REASON FOR VISIT Meds PLAN OF CARE VITAL SIGNS MEDICATIONS Medication [...]
--- OUTSIDE RECORDS SUMMARY | 2018-04-05 10:33 | XMS REPORT ---
Author Author Scott Dent Organization [employer] Address Unknown Phone Unavailable Care Team Providers Care Clay Roaster Name Role Phone Scott Dent CP Unavailable Allergies No Known Allergies Problems Problem Type Condition Code Onset Dates Condition Status Problem Essential hypertension I10 Active Problem Major depressive disorder with single episode, in full remission F32.5 Active Problem Mild intermittent asthma without complication J45.20 Active Problem Primary osteoarthritis of right knee M17.11 Active Problem Morbid obesity with BMI of 50.0-59.9, adult Z68.43 Active Medications Medication Code System Code Instructions Start Date End Date Status Dosage PredniSONE [facility] [address]-42 10 MG Orally Once a day September 07, 2015 1 tablet Results No Known Results Summary Purpose [employer] Submission
--- OUTSIDE RECORDS SUMMARY | 2018-04-05 10:33 | XMS REPORT ---
Author Scott Thorpe [facility] [employer] Address Unknown Phone Unavailable Care Team Providers Care Train Master Name Role Phone Scott Dent CP Unavailable Allergies, Adverse Reactions, Alerts Substance Reaction Event Type N.K.D.A. Info Not Available Non Drug Allergy Problems Problem Type Condition Code Onset Dates Condition Status Problem Essential hypertension I10 Active Problem Major depressive disorder with single episode, in full remission F32.5 Active Problem Mild intermittent asthma without complication J45.20 Active Assessment Seasonal allergic rhinitis, unspecified allergic rhinitis trigger J30.2 Active Assessment Eustachian tube dysfunction, bilateral H69.83 Active Problem Primary osteoarthritis of right knee M17.11 Active Problem Morbid obesity with BMI of 50.0-59.9, adult Z68.43 Active Medications Medication Code System Code Instructions Start Date End Date Status Dosage Flonase [facility] [address]-35 50 MCG/ACT Nasally Once a day July 14, 2015 2 sprays in each nostril Escitalopram Oxalate [facility] 83532551784 20 MG Orally Once a day 1 tablet Telmisartan-HCTZ [facility] [address]-10 80-25 MG Orally Once a day 1 tablet Naproxen [facility] [address]-87 500 mg Orally every 12 hrs October 09, 2015 1 tablet as needed Potassimin [facility] [address]-19 75 MG Orally Once a day 1 tablet Iron [facility] 56524-[address] 325 (65 Fe) MG Orally prn only 1 tablet Furosemide [facility] [address]-62 40 MG Orally Once a day as needed 1 tablet Mobic [facility] [address]-77 7.5 MG Orally Once a day July 14, 2015 Dec 23, 2015 1 tablet ProAir HFA [facility] [address]-36 108 (90 Base) MCG/ACT Inhalation every 4 hrs 2 puffs as needed Augmentin [facility] [address]-00 875-125 MG Orally every 12 hrs November 26, 2015 Dec 18, 2015 1 tablet PredniSONE [facility] [address]-10 20 mg Orally Once a day Dec 23, 2015 2 tablets daily x 5 days then 1 tablet daily x 5 days Procedures Procedure Coding System Code Date Depo-Medrol (Methylprednisolone Acetate) CPT-4 J1030 Dec 23, 2015 THER/PROPH/DIAG INJ, SC/IM CPT-4 72687 Dec 23, 2015 Office Visit, Est Pt., Level 3 CPT-4 97901 Dec 23, 2015 Vital Signs Date/Time: Dec 23, 2015 Weight 350.0 lbs Height 69.0 in Temperature 98.4 F Oximetry 97% RA % Pulse 68 /min Blood Pressure Diastolic 76 mm Hg Blood Pressure Systolic 118 mm Hg BMI 51.68 Index Results No Known Results Summary Purpose eClinicalWorks Submission
--- OUTSIDE RECORDS SUMMARY | 2018-04-05 10:33 | XMS REPORT ---
Author Author Scott Dent Organization [employer] Address [address] [place] [address] Care Team Providers Care Media Librarian Name Role Phone Scott Dent Unavailable PROBLEMS Type Condition ICD9-CM Code URJ06-MD Code Onset Dates Condition Status SNOMED Code Problem Primary osteoarthritis of right knee M17.11 Active 931526209 Problem Morbid obesity with BMI of 50.0-59.9, adult Z68.43 Active 083883050 Problem Other chronic pain G89.29 Active 11827654 Problem Benign essential hypertension I10 Active 4208578 Problem Essential hypertension I10 Active 44328400 Problem Major depressive disorder with single episode, 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 Unknown Non Drug Allergy Dec, Unknown SOCIAL HISTORY No smoking Hx information available PLAN OF CARE Activity Details Follow Up 2 Weeks Reason:knee pain/depression VITAL SIGNS Temperature 99.0 degrees Fahrenheit 2017-01-06 Height 69.0 in 2017-01-06 Oximetry 97%RA % 2017-01-06 Blood pressure systolic 122 mm Hg 2017-01-06 Blood pressure diastolic 83 mm Hg 2017-01-06 MEDICATIONS Medication Instructions Dosage Frequency Start Date End Date Duration Status Furosemide 40 MG Orally Once a day as needed 1 tablet 90 Active Medrol 4 mg Orally daily as directed 24h Dec, 6 days Active ProAir HFA 108 (90 Base) MCG/ACT Inhalation every 4 hrs 2 puffs as needed 4h 90 Active Voltaren 1 % Externally QID prn apply to Rt knee Dec, 30 days Active Telmisartan-HCTZ 80-25 MG Orally Once a day 1 tablet 24h 90 days Active Meloxicam 7.5 MG Orally Once a day 1 tablet 24h May, 30 day(s) Active Flonase 50 MCG/ACT Nasally Once a day 2 sprays in each nostril 24h Jul, Active Escitalopram Oxalate 20 MG Orally Once a day 1 tablet 24h 90 days Active Potassimin 75 MG Orally Once a day 1 tablet 24h 30 day(s) Active Iron 325 (65 Fe) MG Orally prn only 1 tablet 30 day(s) Active RESULTS No Results PROCEDURES Procedure Date Ordered Related Diagnosis Body Site COMPLETE CBC W/AUTO DIFF WBC Jan 06, 2017 COMPREHEN METABOLIC PANEL Jan 06, 2017 VENIPUNCT, ROUTINE* Jan 06, 2017 Dexamethasone Jan 06, 2017 Office Visit, Est Pt., Level 4 Jan 06, 2017 ASSAY THYROID STIM HORMONE Jan 06, 2017 LIPID PANEL Jan 06, 2017 THER/PROPH/DIAG INJ, SC/IM Jan 06, 2017 Depo-Medrol (Methylprednisolone Acetate) Jan 06, 2017 IMMUNIZATIONS Vaccine Route Administration Date Status Dexamethasone IM Intramuscular Jan 06, 2017 Administered Depo-Medrol (Methylprednisolone Acetate) IM Intramuscular Jan 06, 2017 Administered
--- OUTSIDE RECORDS SUMMARY | 2018-04-05 10:33 | XMS REPORT ---
Author Scott Thorpe [facility] [employer]Clinical[employer] Address Unknown Phone Unavailable Care Team Providers Care Tube Builder Name Role Phone Scott Dent CP Unavailable Allergies, Adverse Reactions, Alerts Substance Reaction Event Type N.K.D.A. 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 Active Problem Mild intermittent asthma without complication J45.20 Active Assessment Acute meniscal tear of right knee, subsequent encounter S83.206D Active Assessment Acute non-recurrent maxillary sinusitis J01.00 Active Problem Primary osteoarthritis of right knee M17.11 Active Problem Morbid obesity with BMI of 50.0-59.9, adult Z68.43 Active Medications Medication Code System Code Instructions Start Date End Date Status Dosage Furosemide [facility] [address]-56 40 MG Orally Once a day as needed 1 tablet Telmisartan-HCTZ [facility] [address]-55 80-25 MG Orally Once a day 1 tablet Tramadol HCl [facility] [address]-75 50 mg Orally twice a day (bid) October 09, 2015 October 09, 2015 1 tablet Augmentin [facility] [address]-74 875-125 MG Orally every 12 hrs November 26, 2015 1 tablet Potassimin [facility] [address]-20 75 MG Orally Once a day 1 tablet Escitalopram Oxalate [facility] [address]-45 20 MG Orally Once a day July 15, 2015 1 tablet Flonase [facility] [address]-33 50 MCG/ACT Nasally Once a day July 14, 2015 1 spray in each nostril ProAir HFA [facility] [address]-86 108 (90 Base) MCG/ACT Inhalation every 4 hrs 2 puffs as needed Naproxen [facility] [address]-78 500 mg Orally every 12 hrs October 09, 2015 1 tablet as needed Iron [facility] [address] 325 (65 Fe) MG Orally prn only 1 tablet Mobic [facility] [address]-77 7.5 MG Orally Once a day July 14, 2015 1 tablet Procedures Procedure Coding System Code Date Office Visit, Est Pt., Level 3 CPT-4 66537 November 26, 2015 Depo-Medrol (Methylprednisolone Acetate) CPT-4 J1030 November 26, 2015 Vital Signs Date/Time: November 26, 2015 Weight 346.4 lbs Height 69.0 in Temperature 98.3 F Oximetry 98% RA % Pulse 68 /min Blood Pressure Diastolic 72 mm Hg Blood Pressure Systolic 118 mm Hg BMI 51.15 Index Results No Known Results Summary Purpose eClinicalWorks Submission
[2018-04-05] MEDS ORDERED: NALT1TAB PO (11:09)
[2018-04-05] MEDS ORDERED: TELM1TAB28 PO (11:09)
[2018-04-05] MEDS ORDERED: FAMOTIDINE 20MG/2ML IV (PEPCID) IVP ONE (11:15)
[2018-04-05] MEDS ORDERED: ASPIRIN 81 MG CHEW (CHILDREN'S ASA) PO ONE (11:15)
--- NOTE | 2018-04-05 11:35 | Diagnostic Imaging Report ---
INDICATION: Intermittent epigastric and chest pain. COMPARISON: 12/10/2008. DISCUSSION: Two views of the chest were obtained. Elevated right hemidiaphragm is again noted, stable. Normal heart size. No focal consolidation, pleural fluid, or pneumothorax. No osseous abnormality. IMPRESSION: 1. No acute cardiopulmonary process. Dictated by: Dictated on workstation # [id number]
[2018-04-05 11:46] LABS: BASOPHILS % (AUTO) 1 % (0-10); EOSINOPHILS # (AUTO) 0.3 10^3/uL (0.0-0.3); EOSINOPHILS % (AUTO) 5 % (0-10); HEMATOCRIT 40 % (35-52); HEMOGLOBIN 13.1 G/DL (11.5-16.0); LYMPHOCYTES # (AUTO) 1.2 X 10^3 (1.0-4.0); LYMPHOCYTES % (AUTO) 24 % (12-44); MEAN CORPUSCULAR HEMOGLOBIN 27 PG (25-34); MEAN CORPUSCULAR HGB CONC 33 G/DL (32-36); MEAN CORPUSCULAR VOLUME 82 FL (80-99); MEAN PLATELET VOLUME 8.9 FL (7.4-10.4); MONOCYTES # (AUTO) 0.4 X 10^3 (0.0-1.0); MONOCYTES % (AUTO) 7 % (0-12); NEUTROPHILS # (AUTO) 3.2 X 10^3 (1.8-7.8); NEUTROPHILS % (AUTO) 63 % (42-75); PLATELET COUNT 287 10^3/uL (130-400); RED BLOOD COUNT 4.85 10^6/uL (4.35-5.85); RED CELL DISTRIBUTION WIDTH 14.9 % (10.0-14.5); WHITE BLOOD COUNT 5.1 10^3/uL (4.3-11.0)
--- NOTE | 2018-04-05 11:46 | ED Chest Pain ---
General Chief Complaint: Abdominal/GI Problems Stated Complaint: STOMACH PAIN Nursing Triage Note: PT PRESENTS TO ED WITH COMPLAINTS OF INTERMITTENT EPIGASTRIC PAIN THAT RADIATES TO HER NECK SINCE LAST NIGHT. PT DENIES PAIN CURRENTLY. PT REPORTS PAIN STARTED WHEN SHE WAS DRINKING A CUP OF COFFEE BEFORE BED WHEN IT STARTED LAST NIGHT. Nursing Sepsis Screen: No Definite Risk Source: patient Exam Limitations: no limitations History of Present Illness Date Seen by Provider: Apr 05, 2018 Time Seen by Provider: 11:05 Initial Comments This 48-year-old woman presents to the emergency room with complaints of epigastric and lower chest pain. She had an episode last night and then again this morning. She is in town visiting from [place]. Pain occurred somewhere around 09:00. It originated in the epigastric area but then radiated up into the chest and neck. Pain was gone upon arrival. She denies any associated symptoms such as lightheadedness, shortness of breath, nausea, sweating, etc. She has no known history of heart disease. She reports pain is better with standing and worse with sitting or lying. She described the pain that occurred today is a bit of a pressure. She called a tele-doctor line available through her insurance which directed her to the ER. Allergies and Home Medications Allergies Coded Allergies: No Known Drug Allergies (Unverified , 04/05/18) Home Medications Omeprazole 20 Mg Tablet.dr, 20 MG PO DAILY Prescribed by: KIN MADRIGAL on 04/05/18 1410 Patient Home Medication List Home Medication List Reviewed: Yes Review of Systems Review of Systems Constitutional: no symptoms reported EENTM: No Symptoms Reported Respiratory: No Symptoms Reported Cardiovascular: See HPI Gastrointestinal: See HPI Genitourinary: No Symptoms Reported Musculoskeletal: no symptoms reported Skin: no symptoms reported Psychiatric/Neurological: No Symptoms Reported Endocrine: No Symptoms Reported Hematologic/Lymphatic: No Symptoms Reported Past Pdouyms-Ajfxra-Xqagow Hx Past Med/Social Hx: Reviewed and Corrections made Patient Social History Alcohol Use: Occasionally Uses Recreational Drug Use: No Smoking Status: Current Someday Smoker Recent Foreign Travel: No Contact w/Someone Who Travel: No Recent Infectious Disease Expo: No Past Medical History Respiratory: No Cardiac: Yes Hypertension Neurological: No : No Reproductive Disorders: No Genitourinary: No Gastrointestinal: No Musculoskeletal: No Endocrine: No HEENT: No Cancer: No Did You Recieve Any Treatments: No Psychosocial: Yes Depression Family Medical History Reviewed and Corrections made Psychiatric Problems (alcoholism) Physical Exam Vital Signs Vital Signs - First Documented 04/05/18 11:00 Temp 98.2 Pulse 69 Resp 20 B/P (MAP) 147/99 (115) Pulse Ox 97 Capillary Refill : Less Than 3 Seconds Height, Weight, BMI Height: 5'10.00" Weight: 350lbs. oz. 158.599309va; BMI Method:Stated General Appearance: No Apparent Distress, WD/WN, Obese HEENT: PERRL/EOMI, Normal ENT Inspection Neck: Normal Inspection Respiratory: Chest Non Tender, Lungs Clear, Normal Breath Sounds, No Accessory Muscle Use, No Respiratory Distress Cardiovascular: Regular Rate, Rhythm, No Murmur, Normal Peripheral Pulses Gastrointestinal: Normal Bowel Sounds, Non Tender, Soft Extremity: Normal Capillary Refill, Non Tender, No Calf Tenderness, Swelling, Other (negative Felisha) Neurologic/Psychiatric: Alert, Oriented x3, No Motor/Sensory Deficits, Normal Mood/Affect, medical safety director II-XII Norm as Tested Skin: Normal Color, Warm/Dry Progress/Results/Core Measures Results/Orders Lab Results Laboratory Tests Test 04/05/18 11:38 04/05/18 13:10 Range/Units White Blood Count 5.1 4.3-11.0 10^3/uL Red Blood Count 4.85 4.35-5.85 10^6/uL Hemoglobin 13.1 11.5-16.0 G/DL Hematocrit 40 35-52 % Mean Corpuscular Volume 82 80-99 FL Mean Corpuscular Hemoglobin 27 25-34 PG Mean Corpuscular Hemoglobin Concent 33 32-36 G/DL Red Cell Distribution Width 14.9 H 10.0-14.5 % Platelet Count 287 130-400 10^3/uL Mean Platelet Volume 8.9 7.4-10.4 FL Neutrophils (%) (Auto) 63 42-75 % Lymphocytes (%) (Auto) 24 12-44 % Monocytes (%) (Auto) 7 0-12 % Eosinophils (%) (Auto) 5 0-10 % Basophils (%) (Auto) 1 0-10 % Neutrophils # (Auto) 3.2 1.8-7.8 X 10^3 Lymphocytes # (Auto) 1.2 1.0-4.0 X 10^3 Monocytes # (Auto) 0.4 0.0-1.0 X 10^3 Eosinophils # (Auto) 0.3 0.0-0.3 10^3/uL Basophils # (Auto) 0.0 0.0-0.1 10^3/uL Prothrombin Time 12.9 12.2-14.7 SEC INR Comment 1.0 0.8-1.4 Activated Partial Thromboplast Time 30 24-35 SEC Sodium Level 140 135-145 MMOL/L Potassium Level 4.3 3.6-5.0 MMOL/L Chloride Level 102 98-107 MMOL/L Carbon Dioxide Level 29 21-32 MMOL/L Anion Gap 9 5-14 MMOL/L Blood Urea Nitrogen 15 7-18 MG/DL Creatinine 0.80 0.60-1.30 MG/DL Estimat Glomerular Filtration Rate > 60 BUN/Creatinine Ratio 19 Glucose Level 95 70-105 MG/DL Calcium Level 9.8 8.5-10.1 MG/DL Corrected Calcium 9.6 8.5-10.1 MG/DL Magnesium Level 2.2 1.8-2.4 MG/DL Total Bilirubin 0.5 0.1-1.0 MG/DL Aspartate Amino Transf (AST/SGOT) 23 5-34 U/L Alanine Aminotransferase (ALT/SGPT) 28 0-55 U/L Alkaline Phosphatase 81 40-136 U/L Myoglobin 43.9 10.0-92.0 NG/ML Troponin I < 0.30 < 0.30 <0.30 NG/ML Total Protein 7.1 6.4-8.2 GM/DL Albumin 4.3 3.2-4.5 GM/DL My Orders Orders - KIN GALLEGO MD Cbc With Automated Diff (04/05/18 11:13) Magnesium (04/05/18 11:13) Ekg Tracing (04/05/18 11:13) Cardiac Profile 1 (04/05/18 11:13) Comprehensive Metabolic Panel (04/05/18 11:13) Myoglobin Serum (04/05/18 11:13) Protime With Inr (04/05/18 11:13) Partial Thromboplastin Time (04/05/18 11:13) O2 (04/05/18 11:13) Monitor-Rhythm Ecg Trace Only (04/05/18 11:13) Saline Lock/Iv-Start (04/05/18 11:13) Chest Pa/Lat (2 View) (04/05/18 11:13) Aspirin Chewable Tablet (Baby Aspirin Ch (04/05/18 11:15) Famotidine Injection (Pepcid Injection) (04/05/18 11:15) Troponin I (04/05/18 13:00) Medications Given in ED Vital Signs/I&O 04/05/18 04/05/18 11:00 14:23 Temp 98.2 Pulse 69 70 Resp 20 20 B/P (MAP) 147/99 (115) 128/82 (97) Pulse Ox 97 98 Blood Pressure Mean: 115 Progress Progress Note : Progress Note Initial workup was unremarkable. We discussed further evaluation and options were reviewed. Patient wished to proceed with a four-hour troponin. The repeat troponin was negative and patient remained pain free. She was dismissed home with instructions for an antacid use and close follow-up with her primary care provider. Return precautions advised. Initial ECG Impression Date: Apr 05, 2018 Initial ECG Impression Time: 11:36 Initial ECG Rate: 60 Initial ECG Rhythm: Normal Sinus Initial ECG Intervals: Normal Initial ECG Impression: Normal Comment Normal sinus rhythm with no ST elevation or depression. No abnormal intervals or axis deviation. Diagnostic Imaging Diagonstic Imaging: Xray Plain Films/CT/US/NM/MRI: chest Comments Chest x-ray viewed by me and report reviewed. See report below: NAME: ZAID MARTÍNEZ [facility] REC#: [id number] PT STATUS: REG ER : 1970 PHYSICIAN: KIN GALLEGO MD ADMIT DATE: 04/05/18/ER Draft Date of Exam:04/05/18 CHEST PA/LAT (2 VIEW) INDICATION: Intermittent epigastric and chest pain. COMPARISON: 12/10/2008. DISCUSSION: Two views of the chest were obtained. Elevated right hemidiaphragm is again noted, stable. Normal heart size. No focal consolidation, pleural fluid, or pneumothorax. No osseous abnormality. IMPRESSION: 1. No acute cardiopulmonary process. Dictated on workstation # [id number] Dict: 04/05/18 1128 Trans: 04/05/18 1134 [id number] Interpreted by: CRISTOFER ARRIETA MD Departure Impression Primary Impression: Epigastric pain Additional Impression: Chest pain Qualified Codes: R07.9 - Chest pain, unspecified Disposition: 01 HOME, SELF-CARE Condition: Improved Departure-Patient Inst. Decision time for Depature: 14:07 Referrals: NO,LOCAL PHYSICIAN (PCP/Family) Primary Care Physician Patient Instructions: Acid Reflux (Gastroesophageal Reflux Disease), Adult (DC) , Chest Pain Add. Discharge Instructions: Take an antacid medication daily for the next two weeks. You may use an over- the-counter medication such as omeprazole 20 mg daily or Pepcid (famotidine) 20 mg twice daily. Follow-up with your primary care provider as soon as possible. Seek referral to a hydrator if your primary care provider feels appropriate. Return to care if you have worsening symptoms. Avoid consuming things that may irritate your stomach or worsen acid reflux such as alcohol, spicy foods, fatty or greasy foods, caffeine, carbonation, citrus fruits and juices, tomato products, mints, tobacco products, NSAID medication such as ibuprofen or naproxen, chocolate, etc. Avoid overeating or eating close to bedtime. All discharge instructions reviewed with patient and/or family. Voiced understanding. Scripts Omeprazole (Omeprazole) 20 Mg Tablet. 20 MG PO DAILY, #14 TAB Prov: KIN GALLEGO MD 04/05/18 KIN GALLEGO MD Apr 05, 2018 11:46
[2018-04-05 11:56] LABS: PROTHROMBIN TIME PATIENT 12.9 SEC (12.2-14.7)
[2018-04-05 12:04] LABS: ALANINE AMINOTRANSFERASE 28 U/L (0-55); ALBUMIN 4.3 GM/DL (3.2-4.5); ALKALINE PHOSPHATASE 81 U/L (40-136); BILIRUBIN,TOTAL 0.5 MG/DL (0.1-1.0); BUN/CREATININE RATIO 19; CALCIUM 9.8 MG/DL (8.5-10.1); CARBON DIOXIDE 29 MMOL/L (21-32); CHLORIDE 102 MMOL/L (98-107); GFR ESTIMATED > 60; GLUCOSE 95 MG/DL (70-105); MAGNESIUM 2.2 MG/DL (1.8-2.4); POTASSIUM 4.3 MMOL/L (3.6-5.0); SODIUM 140 MMOL/L (135-145); TOTAL PROTEIN 7.1 GM/DL (6.4-8.2)
[2018-04-05 12:11] LABS: MYOGLOBIN SERUM 43.9 NG/ML (10.0-92.0)
[2018-04-05] MEDS ORDERED: OMEP20TA7 PO (14:10)
[2018-04-05 14:23] VITALS: BP 128/82
== END 2018-04-05 14:22 | disposition home or self-care (01) ==
LOC: EDUNIT# 10:24 → ER 10:26
DX: R10.13 Epigastric pain (principal); R07.89 Other chest pain; I10 Essential (primary) hypertension; F32.9 Major depressive disorder, single episode, unspecified; F17.200 Nicotine dependence, unspecified, uncomplicated
CPT/HCPCS: 36415; 71046; 80053; 83735; 83874; 84484; 85025; 85610; 85730; 93041